=== PATIENT | female | born 1935 | race Caucasian/White ===

== ENCOUNTER 2020-02-14 12:19 | Inpatient (IN) | payer MEDICARE, MEDICAID, SELFPAY ==
[2020-02-14] VITALS (10 sets, daily range): BP systolic 106–147; BP diastolic 74–90; PULSE 84–130; RESP 16–23; TEMP 36.5–36.9; O2SAT 92–100; BMI 24.4
--- NOTE | ~2020-02-14 | XR_ITS ---
EXAMINATION: XR chest 1V portable DATE: 02/16/2020 06:01 INDICATION: Pneumonia. Congestive heart failure. TECHNIQUE: A single frontal view of the chest was obtained. COMPARISON: Chest single view 02/14/2020, CT abdomen and pelvis 02/14/2020 FINDINGS: There are moderate-sized right and small left pleural effusions. There is a diffuse interst itial pattern, consistent with pulmonary edema. There are airspace opacities at the lung bases, likel y atelectasis. No pneumothorax. Cardiomegaly is noted. IMPRESSION: 1. Mild pulmonary edema. 2. Moderate-sized right and small left pleural effusions with worsening on the right. 3. Cardiomegaly. Reviewed, dictated and finalized at location A.
--- NOTE | ~2020-02-14 | CT_ITS ---
EXAMINATION: CT abdomen pelvis w con EXAM DATE: 02/14/2020 18:08 INDICATION: Generalized abdominal pain. TECHNIQUE: Spiral CT of the abdomen and pelvis was performed following intravenous injection of 100 m L Omnipaque 350. Axial, coronal and sagittal images were reviewed. Initially a scan was done but the first injection to hub popped off. The dose-length product (DLP) for this examination was 329.62 mGy -cm. The exposure was tailored according to patient size (auto mA exposure control), and iterative r econstruction (ASIR) was used as additional dose reduction technique. There is no prior study for co mparison. FINDINGS: The liver, spleen, adrenal glands and pancreas are unremarkable. Gallbladder is unremarkab le. No biliary obstruction. There is a diminutive but nonthrombosed left liver lobe lateral segmenta l portal vein, with atrophy of that segment. No nephrolithiasis. Kidneys enhance symmetrically. There is no hydronephrosis. Largest cyst is in the left kidney measuring 5.4 cm. The uterus is unremarkabl e. The bladder is unremarkable. There is no retroperitoneal or pelvic lymphadenopathy. There is mild scattered arteriosclerotic disease. The appendix is normal. The stomach and small bowel are unremarkable. There is expected amount of c olonic stool. There is moderate sigmoid predominant colonic diverticulosis. There is no adjacent inf lammatory change to suggest diverticulitis. No free intraperitoneal gas. Mild cardiomegaly. There is moderate right pleural effusion, trace left pleural effusion. There is adjacent compressive atelec tasis, subsegmental on the right. There are no osteoblastic or osteolytic lesions identified. IMPRESSION: 1. No acute intra-abdominal findings. 2. Left liver lobe lateral segmental atrophy. 3. Moderate scattered colonic diverticulosis. 4. Cardiomegaly, moderate right and small trace pleural effusions. Reviewed, dictated and finalized at location A.
--- NOTE | ~2020-02-14 | XR_ITS ---
EXAMINATION: XR chest 1V portable INDICATION: Shortness of breath TECHNIQUE: Portable AP chest at 1346 hours COMPARISON: None available FINDINGS: Cardiomegaly is noted. There are patchy airspace opacities in the mid and lower lung zones and the right perihilar region. There is a mild diffuse interstitial pattern. Small pleural effusions are present. No pneumothorax is identified. IMPRESSION: 1. Cardiomegaly with mild pulmonary edema. 2. Airspace opacities of the mid and lower lung zones a right perihilar region, consistent with atele ctasis versus pneumonia versus pulmonary edema. 3. Small pleural effusions. Reviewed, dictated and finalized at location A. IMPRESSION: 1. Cardiomegaly with mild pulmonary edema. 2. Airspace opacities of the mid and lower lung zones a right perihilar region, consistent with atelectasis versus pneumonia versus pulmonary edema. 3. Small pleural effusions.
--- NOTE | 2020-02-14 12:35 | ECG_ITS ---
Measurements Intervals [place] Rate: 114 P: VT: 0 QRS: -9 QRSD: 100 T: 32 QT: 324 QTc: 448 Interpretive Statements ATRIAL FIBRILLATION WITH RAPID VENTRICULAR RESPONSE DELAYED PRECORDIAL R/S TRANSITION LOW QRS VOLTAGE IN LIMB LEADS BORDERLINE T WAVE ABNORMALITY- INF/LAT LEADS BASELINE ARTIFACT- I, II, III, AVR, AVL, AVF ABNORMAL ECG Electronically Signed On 02-14-2020 14:17:22 CDT by Arsenio Bhakta D.O.
[2020-02-14 13:22] LABS: Basophils Percent Auto 0.5 % (0.2-1.2); Eosinophils Percent Auto 0.3 % (0-4.4); Hematocrit 38.4 % (37.0-47.0); Hemoglobin 12.1 g/dL (12.0-15.0); Immature Granulocyte Absolute 0.01 K/mm3 (0.00-0.031); Immature Granulocyte Percent A 0.2 % (0-0.5); Lymphocytes Absolute Auto 1.39 K/mm3 (0.9-3.2); Lymphocytes Percent Auto 22.9 % (18.3-44.2); Mean Corpuscular HGB Conc 31.5 g/dl (32-36); Mean Corpuscular Hemoglobin 28.1 pg (26-34); Mean Corpuscular Volume 89.3 fl (80-100); Mean Platelet Volume 8.9 fl (7.4-10.4); Monocytes Absolute Auto 0.4 K/mm3 (0.1-0.6); Monocytes Percent Auto 6.4 % (2.6-8.5); Neutrophils Absolute Auto 4.2 K/mm3 (1.3-6.7); Neutrophils Percent Auto 69.7 % (45.5-73.1); Platelet Count Result 275 k/mm3 (150-375); Red Cell Distribution Width 13.6 % (11.5-14.5); White Blood Count 6.1 K/mm3 (4.5-10.0)
[2020-02-14 13:36] LABS: Blood Urea Nitrogen 21 mg/dL (7-17); Calcium 9.6 mg/dL (8.4-10.2); Carbon Dioxide 27 mmol/L (22-30); Chloride 104 mmol/L (98-107); Estimated CRCL calculation 33 ml/min; Estimated Glomerular Filt Rate 60; Glucose 98 mg/dL (65-105); Potassium 4.2 mmol/L (3.4-5.0); Sodium 137 mmol/L (137-145)
--- NOTE | 2020-02-14 14:30 | ED.SOB ---
HPI - SOB/Dyspnea General Chief Complaint: Shortness of Breath/Dyspnea Stated Complaint: SOB Time Seen by Provider: 02/14/20 13:31 History of Present Illness HPI Narrative: Patient presents with her daughter for increasing shortness of breath. This started about 5 days ago primarily with exertion. She was breathing deeper and heavier. She said her normal temperature runs at 94 and she was 95 at home. Her appetite is fine bowels are moving. She has not had chills or sweats. She has some lower abdominal pain intermittently, for which she sees a GI specialist. She has no chest pain. She has not had A. fib in the past. The history comes from the daughter because she says her mother is hard of hearing and cannot hear without lipreading. I am wearing my and 95 mask, and she cannot see my mouth when I am talking. MD elicited complaint: shortness of breath Related Data Home Medications Medication Instructions Recorded Confirmed Unable to Obtain Home Medications 02/14/20 02/14/20 Allergies Allergy/AdvReac Type Severity Reaction Status Date / Time tetracycline Allergy Hives Verified 02/14/20 12:35 Review of Systems Review of Systems: Narrative: Review of systems per the daughter is shortness of breath on exertion and lower abdominal pain. All else negative. All systems reviewed & are unremarkable except as noted in HPI and below PMFSH Social History Social History (Updated 02/14/20 @ 14:33 by Evi Padilla MD) Smoking status: Never smoker Alcohol intake: never Substance use: never Exam Narrative: Exam Narrative: GENERAL: Well-appearing, well-nourished, and in no acute distress. HEAD: Normocephalic, atraumatic. EYES: PERRLA and EOMI. ENT: Nares clear, no rhinorrhea or epistaxis. Mucous membranes moist. NECK: Supple. CHEST: Clear to auscultation. No respiratory distress. HEART: No murmur heard. Normal peripheral pulses. Heart sounds are distant. ABDOMEN: Soft, nontender, nondistended, normal active bowel sounds. EXTREMITIES: Normal range of motion. No edema. SKIN: Warm, dry, no rash. NEURO: No focal deficits. Alert and oriented x3. PSYCH: Normal mood and affect. Course Reevaluation(s) Reevaluation #1: Went in to give the patient and her daughter and updated on the admission process. The daughter says now her mother's stomach hurts. Patient points across her waistline right to left. She had 3 loose stools at home today, but does not feel like she needs to use the bathroom again. We will order a CT of the abdomen and pelvis, before she goes upstairs for admission. Date: 02/14/20 Time: 17:33 Reevaluation #2: Went in to update the daughter and the patient about the CAT scan results. She had enlarged heart, some fluid, but nothing serious. She has since had another bowel movement. The daughter statement for the update and the ready for admission. Date: 02/14/20 Time: 18:46 Vital Signs Vital signs: Vital Signs Temperature 98.4 F 02/14/20 12:23 Pulse Rate 119 H 02/14/20 12:23 Respiratory Rate 02/14/20 12:23 Blood Pressure 147/90 H 02/14/20 12:23 Pulse Oximetry 97 02/14/20 12:23 Temperature 98.4 F 02/14/20 12:23 Pulse Rate 84 02/14/20 19:06 Respiratory Rate 02/14/20 19:06 Blood Pressure 112/78 02/14/20 19:06 Pulse Oximetry 99 02/14/20 19:06 MDM - SOB/Dyspnea Differential Diagnosis Differential diagnosis: Likely congestive heart failure and community acquired pneumonia Medical Records Attestation: I reviewed the patient's medical records. Lab Data Attestation: I reviewed the patient's lab results. Result diagrams: 02/14/20 13:15 02/14/20 13:15 Labs: Lab Results 02/14/20 02/14/20 02/14/20 Range/Units 13:15 13:15 15:30 WBC 6.1 (4.5-10.0) K/mm3 RBC 4.30 (4.2-5.4) M/mm3 Hgb 12.1 (12.0-15.0) g/dL Hct 38.4 (37.0-47.0) % MCV 89.3 (80-100) fl MCH 28.1 (26-34) pg MCHC 31.5 L (32-36) g/dl RDW
[2020-02-14 16:20] LABS: Lactic Acid 0.8 mmol/L (0.7-2.1)
[2020-02-14 16:30] LABS: NT Pro B Type Natriuretic Pept 1730 PG/ML (5-100)
[2020-02-14 16:32] LABS: Troponin I < 0.012 ng/mL (0.000-0.034)
--- NOTE | 2020-02-14 21:25 | ADMGEN ---
This patient, Jeannie Alanis, was admitted to Intensive Care Unit-1. Patient/family oriented to hospital policies and general routines including ID bracelet, bed and alarms, visiting hours, pain management, procedures, bathroom and other care routines, personal items, smoking policy, room service/diet, and visiting hours. Valuables list has been completed. Information on how to activate the Rapid Response Team has been discussed. Patient/Family are encouraged to report perceived risks to care and to ask questions if they do not understand what they are told or what they should do.
--- NOTE | 2020-02-14 22:54 | PM.IMHP ---
H&P: HPI History of Present Illness Chief complaint: Pneumonia, Afib with RVR, Pleural Effusion Narrative: Jeannie Alanis is a 84 year old female the patient is very hard of hearing and reads lips. The patient has 1 more increasingly more short of breath the last 5 days. She stated that she has not had atrial fibrillation in the past she has been staying with her daughter. She is typically quarantine inside of the home. She has been having chills but has not had a fever. She has been having some diarrhea and some lower abdominal pain intermittent knee. She denies any blood in her stool. The patient had a chest x-ray that was read as cardiomegaly with mild pulmonary edema. Airspace opacities in the mid and lower lung zones right hilar area consistent with atelectasis versus pneumonia small pleural effusions. Patient was checked for covid [address] of the abdomen was read as no acute intra-abdominal findings. Left liver lobe lateral segmental atrophy. Moderate scattered colonic diverticulosis. Cardiomegaly moderate right and small trace pleural effusions. Date of service 02/14/2020. The patient was given a Zithromax and Rocephin. She was also started on a Cardizem drip and her heart rate is in the upper 90s to low 100s. Review of Systems Review of Systems: All systems reviewed & are unremarkable except as noted in HPI and below Constitutional: Constitutional: Reports as per HPI and Reports no additional constitutional complaints Eyes: Eyes: Reports as per HPI and Reports no additional eye complaints ENT: Reports system reviewed and no additional complaints, except as documented and Reports Normal hearing present Cardiovascular: Cardiovascular: Reports no additional cardiovascular complaints Respiratory: Respiratory: Reports no additional respiratory complaints and Reports no additional respiratory complaints Gastrointestinal: Gastrointestinal: Reports as per HPI and Reports no additional gastrointestinal complaints Musculoskeletal: Musculoskeletal: Reports no additional musculoskeletal complaints Integumentary/Breasts: Skin/Breast: Reports system reviewed and no additional complaints, except as docu and Reports as per HPI Neurologic: Reports system reviewed and no additional complaints, except as documented, Reports as per HPI and Reports Normal hearing present Psychiatric: Psychiatric: Reports no additional psychiatric complaints and Reports as per HPI Endocrine: Endocrine: Reports no additional endocrine complaints Hematologic/Lymphatic: Hematologic/Lymphatic: Reports no additional hematologic/lymphatic complaints Allergic/Immunologic: Allergic/Immunologic: Reports no additional allergic/immunologic complaints PMFSH Past Medical History Medical History (Updated 02/14/20 @ 23:23 by Krysta Alexandra NP) CHF (congestive heart failure) Depression History of stroke Subarachnoid back in the 1970 Hyperlipidemia Hypertension Hyperthyroidism With goiter Surgical History Surgical History (Updated 02/14/20 @ 23:16 by Krysta Alexandra NP) History of removal of pigmented skin lesion Hx of cholecystectomy Family History Family History Father Acute myocardial infarction Other Hemorrhagic stroke AUNT Mother Cerebrovascular accident Social History Social History (Updated 02/14/20 @ 14:33 by Evi Padilla MD) Smoking status: Never smoker Alcohol intake: never Substance use: never Gender identity (if verbalized by the patient): Female Spiritual care concerns: No Meds Home Medications and Allergies Home Medications Medication Instructions Recorded Confirmed Type amlodipine 7.5 mg PO DAILY 02/14/20 02/14/20 History calcium carbonate-vitamin D3 1 tablet PO HS 02/14/20 02/14/20 History fluoxetine 10 mg PO DAILY 02/14/20 02/14/20 History omega 5-hfu-epc-fish oil [Fish Oil] 1 cap PO DAILY 02/14/20 02/14/20 History p
[2020-02-15] VITALS (14 sets, daily range): BP systolic 91–124; BP diastolic 66–76; PULSE 60–110; RESP 13–24; TEMP 36.1–37.1; O2SAT 90–99
[2020-02-15 03:54] LABS: Basophils Percent Auto 0.5 % (0.2-1.2); Eosinophils Absolute Auto 0.1 K/mm3 (0-0.3); Hematocrit 31.1 % (37.0-47.0); Immature Granulocyte Absolute 0.01 K/mm3 (0.00-0.031); Immature Granulocyte Percent A 0.2 % (0-0.5); Lymphocytes Absolute Auto 1.63 K/mm3 (0.9-3.2); Lymphocytes Percent Auto 27.4 % (18.3-44.2); Mean Corpuscular HGB Conc 32.2 g/dl (32-36); Mean Corpuscular Hemoglobin 28.4 pg (26-34); Mean Corpuscular Volume 88.4 fl (80-100); Mean Platelet Volume 9.7 fl (7.4-10.4); Monocytes Absolute Auto 0.5 K/mm3 (0.1-0.6); Monocytes Percent Auto 7.9 % (2.6-8.5); Neutrophils Absolute Auto 3.8 K/mm3 (1.3-6.7); Platelet Count Result 247 k/mm3 (150-375); Red Blood Count 3.52 M/mm3 (4.2-5.4); Red Cell Distribution Width 13.8 % (11.5-14.5)
[2020-02-15 04:16] LABS: Alanine Aminotransferase 23 U/L (4-35); Albumin Level 3.7 g/dL (3.5-5.1); Alkaline Phosphatase 89 U/L (38-126); Aspartate Amino Transferase 41 U/L (14-36); Bilirubin,Total 0.7 mg/dL (0.2-1.3); Blood Urea Nitrogen 20 mg/dL (7-17); CRP 1.3 mg/dL (<1.0); Calcium 8.6 mg/dL (8.4-10.2); Carbon Dioxide 25 mmol/L (22-30); Chloride 104 mmol/L (98-107); Estimated CRCL calculation 35 ml/min; Estimated Glomerular Filt Rate > 60; Glucose 89 mg/dL (65-105); Potassium 3.9 mmol/L (3.4-5.0); Sodium 136 mmol/L (137-145)
--- NOTE | 2020-02-15 08:47 | WPDCN ---
Assessment and Plan Assessment and plan (1) A-fib: Qualifiers: Atrial fibrillation type: unspecified Qualified Code(s): I48.91 - Unspecified atrial fibrillation Code(s): I48.91 - Unspecified atrial fibrillation Status: Acute Assessment and Plan: New onset AFib RVR. No history of heart disease but is elderly with hypertension, so has risk factors. TSH normal. Echo is pending. Heart rate controlled with IV Cardizem. Will switch to p.o. today. Long discussion with the patient's daughter about atrial fibrillation, management, evaluation, risk of stroke, use of anticoagulants. The patient appears a reasonable candidate for anticoagulation. Will start Eliquis 2.5 mg BID. (2) CHF (congestive heart failure): Qualifiers: Heart failure chronicity: unspecified Heart failure type: unspecified Qualified Code(s): I50.9 - Heart failure, unspecified Code(s): I50.9 - Heart failure, unspecified Status: Chronic Assessment and Plan: Acute diastolic? CHF, new onset. Probably secondary to AFib RVR and diastolic dysfunction, rule out valve disease etc Appears mild, not requiring supplemental oxygen, but does have small effusions. Will start Lasix 20 mg daily IV push. Daily electrolytes Chest x-ray tomorrow (3) Hypertension: Code(s): I10 - Essential (primary) hypertension Status: Chronic Assessment and Plan: Home quinapril and amlodipine on hold, BP good but occ low. Will change amlodipine to Cardizem. (4) Pneumonia: Qualifiers: Laterality: bilateral Lung location: unspecified part of lung Pneumonia type: due to unspecified organism Qualified Code(s): J18.9 - Pneumonia, unspecified organism Code(s): J18.9 - Pneumonia, unspecified organism Status: Acute Assessment and Plan: COVID screen pending. On antibiotics. HPI Data of Consult Date/Time: 02/15/20 08:47 Requesting Physician: Abel Medellin MD Primary Care Provider: [facility] PHYSICIAN Consult Narrative Narrative: Date of service: 02/15/2020 Jeannie Alanis is a 84 year old female whom we were asked to see at the request of Dr. Medellin for our advice and opinion regarding her new onset of atrial fibrillation in consultation. The marcos patient presented to the emergency room yesterday with shortness of breath for 5 days and loose stool. She was found to have AFib RVR of new onset. She has been started on IV Cardizem 5 mg/hr and currently are heart rate is running 70-90 beats per minute. Last night while asleep she did have some short pauses of 2.0-2.2 seconds and the nurse thought she might have some sleep apnea. She has not had any chest pain, fevers, but she has been having some chills and abdominal pain. She has no history of heart disease but does have hypertension and hypercholesterolemia. She carries a history of stroke in 1977. No CHF until this admission. No previous CASTILLO or CP. Some recently edema for the last week or so. The history was obtained from EMR and the patient's nurse, Olivia, and daughter Aliya Nieto. Pt was living in [place] before the COVID pandemic. No PMD in the area. Had a CVA in 1977. Some dementia and memory loss over the last 5 years. No prior h/o heart disease. Has had CREST syndrome, w/ RAynaud's and esophageal problems, which runs int he family. Had a fall in December, but daughter says she appears steady on her feet and does not use any assistive device for walking. Pt is able to do the dishes and walks around the house and takes care of her ADLS. Review of Systems Constitutional: Constitutional: Reports lethargy ENT: Denies Normal hearing present (Severely hard of hearing, reads lips) and Denies epistaxis Cardiovascular: Cardiovascular: Denies chest pain, Reports pedal edema, Reports leg edema,
[2020-02-15] MEDS: FLUOXETINE HCL 10 MG CAPSULE PO (09:04)
[2020-02-15] MEDS: PANTOPRAZOLE 40 MG TABLET PO (09:04)
[2020-02-15] MEDS: OMEGA 3 POLYUNSAT FATTY ACIDS 1 GM CAP PO (09:04)
--- NOTE | 2020-02-15 10:25 | WPDTEECHO ---
[facility] TransEsophageal Echocardiogram Date of procedure: 02/15/20 Procedure Type: Transesophageal echo Diagnosis: Multiple strokes, thought to be cardioembolic Indications: Multiple stool, felt to be cardioembolic Image Quality: Good Findings: Conscious sedation: Performed by Anesthesia, see their notes. Outcome: The patient tolerated the procedure well with no complications. Procedure: After informed consent the patient had Hurricaine spray the hypopharynx. The patient had sedation as described above. He has a very small oropharynx. The transesophageal echo probe was introduced in the esophagus without difficulty. Imaging was obtained in multiplane views. Agitated saline was injected to evaluate for intracardiac shunting. The patient tolerated the procedure well with no complications. Findings: The left atrium was moderately enlarged. There is no thrombus present in the left atrium or left atrial appendage. The atrial septum appeared intact. Mitral valve appeared normal, with no stenosis or prolapse. The left ventricle had had normal size with severe concentric hypertrophy with good contractility of all segments. The ejection fraction is estimated to be: 60%. The aortic root and valve were normal. The ascending aorta, aortic arch and descending thoracic aorta were normal. The right atrium, tricuspid valve, right ventricle, pulmonic valve and pulmonic artery were all normal. There is no pericardial effusion. When agitated saline was injected intravenously there was no evidence of intracardiac shunting during normal respiration and abdominal compression. The patient was too sedated to cough or perform Valsalva. Colorflow Doppler Findings: Trace mitral regurgitation noted. Conclusions: No thrombus seen No vegetation seen Normal aorta; no aortic atheroma seen No intracardiac shunts present Moderate left atrial enlargement Severe concentric left ventricular hypertrophy Normal left ventricular systolic function No valvular heart disease Recomendations: No cardiac or aortic source emboli noted. Etiology of strokes is still uncertain. Continue telemetry to rule out paroxysmal atrial fibrillation Because the patient appeared to fail aspirin and Plavix, I favor continuing and anticoagulant and anti-platelet agent such as Xarelto and Plavix.
[2020-02-15 14:46] LABS: SARS-CoV-2 RNA PCR Negative
--- NOTE | 2020-02-15 19:11 | PM.IMPN ---
Progress Note: A&P Assessment and Plan (1) A-fib: Qualifiers: Atrial fibrillation type: unspecified Qualified Code(s): I48.91 - Unspecified atrial fibrillation Code(s): I48.91 - Unspecified atrial fibrillation Status: Acute Assessment and Plan: New onset. HR better controlled with Diltiazem. Being transitioned to oral route. Eliquis started. She probably has had AFib for at least 1-2 weeks to explain her symptoms. (2) CHF (congestive heart failure): Qualifiers: Heart failure chronicity: unspecified Heart failure type: unspecified Qualified Code(s): I50.9 - Heart failure, unspecified Code(s): I50.9 - Heart failure, unspecified Status: Chronic Assessment and Plan: Suspect CHF related to AFib. May have underlying CHF as well. Echo pending. Good UOP with Lasix. Continue IV Lasix. (3) Pneumonia: Qualifiers: Laterality: bilateral Lung location: unspecified part of lung Pneumonia type: due to unspecified organism Qualified Code(s): J18.9 - Pneumonia, unspecified organism Code(s): J18.9 - Pneumonia, unspecified organism Status: Acute Assessment and Plan: Patient being treated for possible PNA but no cough or fever. WBC normal. Zithromax and Rocephin started. BCx pending. Wean off of antibiotics when feasible. (4) Hypertension: Code(s): I10 - Essential (primary) hypertension Status: Chronic Assessment and Plan: BP reviewed on 02/15/20. BP well controlled. She has been transitioned to oral Diltiazem. Quinapril and Norvasc on hold. (5) Depression: Code(s): F32.9 - Major depressive disorder, single episode, unspecified Status: Chronic Assessment and Plan: Mood stable. Continue with fluoxetine. (6) Hyperlipidemia: Code(s): E78.5 - Hyperlipidemia, unspecified Status: Chronic Assessment and Plan: AST slightly elevated o/w LFTs okay. Continue with fish oil and Crestor. (7) Hyperthyroidism: Code(s): E05.90 - Thyrotoxicosis, unspecified without thyrotoxic crisis or storm Status: Chronic Assessment and Plan: TSH normal. Continue with her propylthiouracil. (8) Suspected COVID-19 virus infection: Code(s): Z20.828 - Contact with and (suspected) exposure to other viral communicable diseases Status: Acute Assessment and Plan: SARS-CoV-2 Negative. Additional Plan Abd pain - possibly related to her dyspnea and not GI. CT A/P result reviewed. Suspect dyspnea related to the pleural effusions/CHF. Her Hgb did drop to 10 but will monitor for now. Contineu Protonix. Subjective Date/time seen: 02/15/20 19:11 Interval history: 84yo female here for SOB found to have new onset AFib. Patient complains of upper abdominal pain when she sits up but believes this is more likely related to her increasing shortness of breath when she is active. She denies any chest pain. She has nausea but no vomiting. She states her nausea improved after bowel movement. She has had 4 soft bowel movements today. She does complain of dry mouth. No cough. She does have Sjogren's syndrome. She has been more short of breath with exertion over the past week or 2. Exam Narrative: Exam Narrative: Gen - NARD but does become dyspneic when she sits up in bed Chest - distant BS in the right base with inspiratory crackles left base, nml RR at rest CV -irregularly-irregular. S1-S2. Telemetry showing atrial fibrillation with reasonably well controlled heart rate. Abd -soft. Mildly protuberant. Nontender. Positive bowel sounds. No masses. Ext - No pedal edema. Negative Homans sign Neuro - Alert and oriented. Nonfocal exam. Hard of hearing Psych - Nml mood and affect Skin - Warm and dry Objective Data Vital Signs Vital Signs: Vital Signs - 24 hr 02/14/20 20:17 02/14/20 21:30 02/14/20 22:39 Temperature 97.7 F Pu
[2020-02-15] MEDS: APIXABAN 2.5 MG TABLET PO (19:39)
[2020-02-15] MEDS: ROSUVASTATIN 5 MG TABLET 15 MG PO (19:40)
[2020-02-15 19:52] LABS: Blood Urea Nitrogen 19 mg/dL (7-17); Calcium 9.1 mg/dL (8.4-10.2); Carbon Dioxide 26 mmol/L (22-30); Chloride 104 mmol/L (98-107); Estimated CRCL calculation 26 ml/min; Estimated Glomerular Filt Rate 47; Glucose 116 mg/dL (65-105); Potassium 4.2 mmol/L (3.4-5.0); Sodium 137 mmol/L (137-145)
[2020-02-15] MEDS: propylthiouraciL 50 MG TABLET PO (21:14)
[2020-02-16] VITALS (15 sets, daily range): BP systolic 114–145; BP diastolic 64–98; PULSE 71–123; RESP 12–93; TEMP 36.1–36.6; O2SAT 16–96
--- NOTE | 2020-02-16 | ECHO_ITS ---
Patient Info Name: Jeannie Alanis Age: 84 years : 1935 Gender: Female Ht: 62 in Wt: 133 lbs BSA: 1.64 m2 HR: 84 bpm BP: 115 / 66 mmHg Heart Rhythm: Atrial Fibrillation Technical Quality: Good Exam Date: 02/16/2020 8:37 AM Exam Location: [facility] Patient Status: Inpatient Admit Date: 02/14/2020 Staff Ordering Physician: Krysta Alexandra NP Speeder Operator: Frandy Morales, EVIE, RT Attending Provider: Kei Medellin MD Referring Physician: Ibrahima FOWLER; Exam Type: CA echo doppler color flow Study Info Indications I50.9 - Heart failure, unspecified Complete two-dimensional, color flow and Doppler transthoracic echocardiogram is performed. Summary 1. Left ventricular wall thickness, chamber size and systolic function are normal with no regional wall motion abnormalities with an estimated ejection fraction of 60-65%. However, the global longitudinal strain was-8% which is severely low, suggesting systolic dysfunction. Diastolic dysfunction is present. 2. Left atrial chamber dimension is severely enlarged. 3. Right ventricular chamber dimension is mildly enlarged with normal systolic function.. 4. Right atrial chamber dimension is severely enlarged. 5. There is mild aortic valve regurgitation. 6. There is moderately severe mitral valve regurgitation. PISA was 0.6 cm. 7. There is severe tricuspid valve regurgitation. 8. Mild pulmonary hypertension, estimated pulmonary arterial systolic pressure is 46 mmHg. 9. The aortic root size at the sinus of Valsalva is borderline dilated at 3.8 cm. . 10. Atrial fibrillation. Left Ventricle Left ventricular chamber dimension is normal. Left ventricular systolic function is normal, estimated at 60-65%. There is no increased left ventricular wall thickness. Left ventricular septal wall motion is normal. The left ventricular diastolic function is abnormal. Global longitudinal strain is severely elevated at -8 %. Left ventricular wall thickness, chamber size and systolic function are normal with no regional wall motion abnormalities with an estimated ejection fraction of 60-65%. However, the global longitudinal strain was-8% which is severely low, suggesting systolic dysfunction. Diastolic dysfunction is present. Right Ventricle Right ventricular chamber dimension is mildly enlarged with normal systolic function.. Right ventricular systolic function is normal. Left Atria Left atrial chamber dimension is severely enlarged. Right Atria Right atrial chamber dimension is severely enlarged. Aortic Valve The aortic valve is trileaflet. There is no aortic valve sclerosis. There is no aortic valve stenosis. There is mild aortic valve regurgitation. Pulmonic Valve The pulmonic valve is normal. There is no pulmonic valve stenosis. There is no pulmonic regurgitation. Mitral Valve The mitral valve has normal leaflets. There is no mitral valve stenosis. There is moderately severe mitral valve regurgitation. PISA was 0.6 cm. The mitral valve annulus is moderately calcified. Tricuspid Valve The tricuspid valve leaflets are normal. There is no significant tricuspid valve stenosis. There is severe tricuspid valve regurgitation. Mild pulmonary hypertension, estimated pulmonary arterial systolic pressure is 46 mmHg. Pericardium/Pleural The pericardium appears normal. There is no pericardial effusion. Inferior Vena Cava Normal inferior vena cava with >50% collapse upon inspiration consistent
[2020-02-16 04:57] LABS: Hematocrit 33.5 % (37.0-47.0); Hemoglobin 10.6 g/dL (12.0-15.0); Mean Corpuscular HGB Conc 31.6 g/dl (32-36); Mean Corpuscular Hemoglobin 27.9 pg (26-34); Mean Corpuscular Volume 88.2 fl (80-100); Mean Platelet Volume 9.1 fl (7.4-10.4); Platelet Count Result 250 k/mm3 (150-375); Red Cell Distribution Width 13.7 % (11.5-14.5)
[2020-02-16 05:21] LABS: Blood Urea Nitrogen 18 mg/dL (7-17); Calcium 8.9 mg/dL (8.4-10.2); Carbon Dioxide 26 mmol/L (22-30); Chloride 106 mmol/L (98-107); Estimated CRCL calculation 29 ml/min; Estimated Glomerular Filt Rate 53; Glucose 102 mg/dL (65-105); Potassium 4.1 mmol/L (3.4-5.0); Sodium 138 mmol/L (137-145)
--- NOTE | 2020-02-16 05:55 | PC.NURSE ---
This patient, Jeannie Alanis, was transferred to [ 212 from ICU 1] on 02/15/20 at 2030. Personal belongings sent with patient. Belongings list checked and signed with receiving [ ]. No report given because this RN remained responsible for patient's care. Appropriate documentation sent with patient.
[2020-02-16] MEDS: propylthiouraciL 50 MG TABLET PO ×2 (10:19→20:16)
[2020-02-16] MEDS: OMEGA 3 POLYUNSAT FATTY ACIDS 1 GM CAP PO (10:19)
[2020-02-16] MEDS: FUROSEMIDE INJ 40 MG/4 ML VIAL 20 MG IV PUSH ×2 (10:19→16:27)
[2020-02-16] MEDS: PANTOPRAZOLE 40 MG TABLET PO (10:19)
[2020-02-16] MEDS: FLUOXETINE HCL 10 MG CAPSULE PO (10:19)
[2020-02-16] MEDS: APIXABAN 2.5 MG TABLET PO ×2 (10:20→20:16)
--- NOTE | 2020-02-16 15:26 | PM.IMPN ---
Progress Note: A&P Assessment and Plan (1) A-fib: Qualifiers: Atrial fibrillation type: unspecified Qualified Code(s): I48.91 - Unspecified atrial fibrillation Code(s): I48.91 - Unspecified atrial fibrillation Status: Acute Assessment and Plan: New onset. HR reasonably well controlled with Diltiazem. Eliquis started but may not be able to afford this. Thus may need Coumadin. She probably has had AFib for at least 1-2 weeks to explain her symptoms. consider low dose metoprolol or advance dilitazem. Awaiting Echo results. (2) CHF (congestive heart failure): Qualifiers: Heart failure chronicity: unspecified Heart failure type: unspecified Qualified Code(s): I50.9 - Heart failure, unspecified Code(s): I50.9 - Heart failure, unspecified Status: Chronic Assessment and Plan: Suspect CHF related to AFib. May have underlying CHF as well. Echo pending. Good UOP with negative fluid balance with Lasix. CXR reviewed showing pulm edema and pleural effusions. Continue IV Lasix. Extra Lasix today. Consider thoracetesis. (3) Pneumonia: Qualifiers: Laterality: bilateral Lung location: unspecified part of lung Pneumonia type: due to unspecified organism Qualified Code(s): J18.9 - Pneumonia, unspecified organism Code(s): J18.9 - Pneumonia, unspecified organism Status: Acute Assessment and Plan: Patient being treated for possible PNA but no cough or fever. WBC remains normal. Zithromax and Rocephin started. BCx NGTD. CXR reviewed today and more consistent with CHF. Will stop abx. Feel PNA has been ruled out. (4) Hypertension: Code(s): I10 - Essential (primary) hypertension Status: Chronic Assessment and Plan: BP reviewed on 02/16/20. BP well controlled. She has been transitioned to oral Diltiazem. Quinapril and Norvasc remain on hold. (5) Depression: Code(s): F32.9 - Major depressive disorder, single episode, unspecified Status: Chronic Assessment and Plan: Mood stable. Continue with fluoxetine. (6) Hyperlipidemia: Code(s): E78.5 - Hyperlipidemia, unspecified Status: Chronic Assessment and Plan: AST slightly elevated o/w LFTs okay. Continue with fish oil and Crestor. (7) Hyperthyroidism: Code(s): E05.90 - Thyrotoxicosis, unspecified without thyrotoxic crisis or storm Status: Chronic Assessment and Plan: TSH normal. Continue with her propylthiouracil. (8) Suspected COVID-19 virus infection: Code(s): Z20.828 - Contact with and (suspected) exposure to other viral communicable diseases Status: Acute Assessment and Plan: SARS-CoV-2 Negative. Subjective Date/time seen: 02/16/20 15:26 Interval history: 84yo female here for SOB found to have new onset AFib. Eating okay. Slept well. No complaints. No SOB but +CASTILLO. Up to the bedside commode. No cough. Since my visit, RN walked patient to the nurses station with HR to 120 and pulse ox dropped 88% on room air. Exam Narrative: Exam Narrative: Gen - NARD lying semirecumbent in bed Chest - distant BS bibasilar R>L o/w clear. nml RR CV -irregularly-irregular. S1-S2. Telemetry showing atrial fibrillation with reasonably well controlled HR with occas <2 sec pause Abd -soft, less protubernat, +BS Ext - No pedal edema Neuro - pleasant and cooperative. Hard of hearing Psych - Nml mood and affect Skin - Warm and dry Objective Data Vital Signs Vital Signs: Vital Signs - 24 hr 02/15/20 16:00 02/15/20 18:00 02/15/20 20:00 Temperature 98.7 F 98.2 F Pulse Rate 104 H 97 98 Respiratory Rate 24 H 20 Blood Pressure 117/74 124/68 Pulse Oximetry 91 93 02/15/20 22:00 02/15/20 23:33 02/16/20 00:00 Temperature 97.9 F Pulse Rate 110 H 101 H 102 H Respiratory Rate 20 Blood Pressure 114/76 Pulse Oximetry 96 02/16/20 02:00 05
--- NOTE | 2020-02-16 15:45 | PM.PNCARD ---
Progress Note: A&P Assessment and Plan (1) A-fib: Qualifiers: Atrial fibrillation type: unspecified Qualified Code(s): I48.91 - Unspecified atrial fibrillation Code(s): I48.91 - Unspecified atrial fibrillation Status: Acute Assessment and Plan: New onset AFib RVR. No history of heart disease but is elderly with hypertension, so has risk factors. TSH normal. Echo is pending. Heart rate reasonably controlled with diltiazem 120 mg daily. Eliquis would cost $147 per month. Called daughter Heather to discuss alternative of warfarin. She said for now to continue with Eliquis. Between her and her son they would make sure she would get what she needs. Discussed that if Eliquis becomes too expensive could always change to warfarin down the line. Will provide discount card for one month free at discharge. (2) CHF (congestive heart failure): Qualifiers: Heart failure chronicity: unspecified Heart failure type: unspecified Qualified Code(s): I50.9 - Heart failure, unspecified Code(s): I50.9 - Heart failure, unspecified Status: Chronic Assessment and Plan: Acute diastolic? CHF, new onset. Probably secondary to AFib RVR and diastolic dysfunction, rule out valve disease etc Appears mild, not requiring supplemental oxygen, but does have small effusions. Oxygen saturation down to 88% with ambulation to nurses station. Dr Medellin giving additional furosemide this afternoon (3) Hypertension: Qualifiers: Hypertension type: essential hypertension Qualified Code(s): I10 - Essential (primary) hypertension Code(s): I10 - Essential (primary) hypertension Status: Chronic Assessment and Plan: Home quinapril and amlodipine on hold, BP good but occasionally low. Amlodipine changed to Cardizem. (4) Pneumonia: Qualifiers: Laterality: bilateral Lung location: unspecified part of lung Pneumonia type: due to unspecified organism Qualified Code(s): J18.9 - Pneumonia, unspecified organism Code(s): J18.9 - Pneumonia, unspecified organism Status: Acute Assessment and Plan: COVID screen negative Antibiotics stopped by Dr Medellin Additional Plan Plan discussed with Dr Gage Gonzales 02/16/2020 Time Spent With Patient Time with patient: less than 15 minutes Subjective Date/time seen: 02/16/20 15:45 Interval history: Folow up for: SOB found to have new onset AFib. and CHF Date of service: 02/16/2020 Subjective: Denied pain. Short of breath with exertional activities even getting up and down to the bedside commode. Denied lightheadedness or palpitations. slept well last night. Some abdominal discomfort. Review of Systems Constitutional: Constitutional: Denies body ache(s) and Denies chills Eyes: Eyes: Denies blurry vision ENT: Denies dizziness, Reports hearing loss, Denies epistaxis and Denies neck pain Cardiovascular: Cardiovascular: Denies chest pain, Reports pedal edema (Resolved), Reports leg edema (Resolved), Denies lightheadedness, Denies palpitations and Reports dyspnea on exertion Respiratory: Respiratory: Denies chest congestion and Reports dyspnea on exertion Gastrointestinal: Gastrointestinal: Reports abdominal pain, Denies melena, Denies hematochezia and Reports diarrhea Genitourinary: Genitourinary: Denies hematuria Musculoskeletal: Musculoskeletal: Denies arthralgias and Denies neck pain Integumentary/Breasts: Skin/Breast: Denies rash Neurologic: Reports confusion (Some memory loss.) and Denies dizziness Psychiatric: Psychiatric: Reports confusion (Some memory loss.) Endocrine: Endocrine: Denies palpitations Hematologic/Lymphatic: Hematologic/Lymphatic: Denies easy bleeding and Denies easy bruising Allergic/Immunologic: Allergic/Immunologic: Denies wheezing E
[2020-02-16] MEDS: ROSUVASTATIN 5 MG TABLET 15 MG PO (20:16)
[2020-02-17] VITALS (19 sets, daily range): BP systolic 113–132; BP diastolic 62–80; PULSE 75–97; RESP 14–18; TEMP 35.8–36.9; O2SAT 96–97
[2020-02-17 05:47] LABS: Blood Urea Nitrogen 19 mg/dL (7-17); Calcium 9.7 mg/dL (8.4-10.2); Carbon Dioxide 31 mmol/L (22-30); Chloride 101 mmol/L (98-107); Estimated CRCL calculation 29 ml/min; Estimated Glomerular Filt Rate 53; Glucose 106 mg/dL (65-105); Magnesium 2.2 mg/dL (1.6-2.3); Potassium 3.7 mmol/L (3.4-5.0); Sodium 138 mmol/L (137-145)
[2020-02-17] MEDS: FLUOXETINE HCL 10 MG CAPSULE PO (08:42)
[2020-02-17] MEDS: PANTOPRAZOLE 40 MG TABLET PO (08:42)
[2020-02-17] MEDS: propylthiouraciL 50 MG TABLET PO ×2 (08:42→20:00)
[2020-02-17] MEDS: OMEGA 3 POLYUNSAT FATTY ACIDS 1 GM CAP PO (08:43)
[2020-02-17] MEDS: FUROSEMIDE INJ 40 MG/4 ML VIAL 20 MG IV PUSH ×2 (08:43→18:48)
[2020-02-17] MEDS: APIXABAN 2.5 MG TABLET PO ×2 (08:43→20:00)
--- NOTE | 2020-02-17 12:32 | PM.PNCARD ---
Progress Note: A&P Assessment and Plan (1) A-fib: Qualifiers: Atrial fibrillation type: unspecified Qualified Code(s): I48.91 - Unspecified atrial fibrillation Code(s): I48.91 - Unspecified atrial fibrillation Status: Acute Assessment and Plan: New onset AFib RVR. Pursuing rate control anticoagulation at this point. Heart rate reasonably controlled with diltiazem 120 mg daily. Eliquis would cost $147 per month. Daughter Heather said for now to continue with Eliquis. Between her and her son they would make sure she would get what she needs. Discussed that if Eliquis becomes too expensive could always change to warfarin down the line. Will provide discount card for one month free at discharge. (2) CHF (congestive heart failure): Qualifiers: Heart failure chronicity: unspecified Heart failure type: unspecified Qualified Code(s): I50.9 - Heart failure, unspecified Code(s): I50.9 - Heart failure, unspecified Status: Chronic Assessment and Plan: Acute diastolic CHF, new onset. Secondary to AFib RVR, diastolic dysfunction, and valve disease. Back on oxygen, still with CASTILLO. Chest x-ray yesterday still showed CHF and effusions. Diuresing, continue b.i.d. Lasix. Add Kcl 10 mEq BID. Continue daily BMP. (3) Hypertension: Qualifiers: Hypertension type: essential hypertension Qualified Code(s): I10 - Essential (primary) hypertension Code(s): I10 - Essential (primary) hypertension Status: Chronic Assessment and Plan: Home quinapril and amlodipine on hold, BP good but occasionally low. Amlodipine changed to Cardizem. (4) Mitral regurgitation: Code(s): I34.0 - Nonrheumatic mitral (valve) insufficiency Status: Acute Assessment and Plan: Has moderately severe mitral and severe tricuspid regurgitation which is contributing to her heart failure. After CHF has been compensated and AFib is well controlled we can reassess valve disease as an outpatient. If it remains severe can consider further options. (5) Tricuspid regurgitation: Code(s): I07.1 - Rheumatic tricuspid insufficiency Status: Acute (6) Pneumonia: Qualifiers: Laterality: bilateral Lung location: unspecified part of lung Pneumonia type: due to unspecified organism Qualified Code(s): J18.9 - Pneumonia, unspecified organism Code(s): J18.9 - Pneumonia, unspecified organism Status: Acute Assessment and Plan: COVID screen negative Antibiotics stopped by Dr Medellin Subjective Date/time seen: 02/17/20 12:32 Interval history: Folow up for: SOB found to have new onset AFib. and CHF 02/16/2020 visit: Subjective: Denied pain. Short of breath with exertional activities even getting up and down to the bedside commode. Denied lightheadedness or palpitations. slept well last night. Some abdominal discomfort. Date of service: 02/17/2020 Still with CASTILLO, but comfortable at rest. No dizziness or chest pain. Edema is has been better. Telemetry shows AFib rate running 90-110 beats per minute. Echo results: EF 60-65%. However, the global longitudinal strain was-8% which is severely low, suggesting systolic dysfunction. Diastolic dysfunction is present. Biatiral enlargement. Mild RV enlargement. moderately severe MR, severe TR, mild pulm HTN RVSP 46 mmHg. . Review of Systems Constitutional: Constitutional: Reports fatigue ENT: Denies Normal hearing present and Denies epistaxis Cardiovascular: Cardiovascular: Denies chest pain, Reports leg edema (Much improved), Denies lightheadedness and Denies palpitations Respiratory: Respiratory: Denies chest congestion, Denies cough, Denies dyspnea and Reports dyspnea on exertion Gastrointestinal: Gastrointesti
--- NOTE | 2020-02-17 13:31 | PM.IMPN ---
Progress Note: A&P Assessment and Plan (1) A-fib: Qualifiers: Atrial fibrillation type: unspecified Qualified Code(s): I48.91 - Unspecified atrial fibrillation Code(s): I48.91 - Unspecified atrial fibrillation Status: Acute Assessment and Plan: New onset. HR better controlled with Diltiazem. Eliquis started. She probably has had AFib for at least 1-2 weeks to explain her symptoms. Echo as mentioned below. Continue Eliquis for now; patient's family willing to pay for this. (2) CHF (congestive heart failure): Qualifiers: Heart failure chronicity: unspecified Heart failure type: unspecified Qualified Code(s): I50.9 - Heart failure, unspecified Code(s): I50.9 - Heart failure, unspecified Status: Chronic Assessment and Plan: CHF related to AFib, diastolic dysfunction (and possibly systolic) and severe MR. Echo showing EF 60-65% but possible systolic dysfunction, diastolic dysfunction, mod-severe MR adn pulmonary HTN with severe TR. Good UOP with negative fluid balance with Lasix. CXR 02/15 showing pulm edema and pleural effusions. Continue IV Lasix and frequency increased today. Continue diuresis. Watch for HoTN. Further workup as outpatient. (3) Hypertension: Qualifiers: Hypertension type: essential hypertension Qualified Code(s): I10 - Essential (primary) hypertension Code(s): I10 - Essential (primary) hypertension Status: Chronic Assessment and Plan: BP reviewed on 02/17/20. BP well controlled. She has been transitioned to oral Diltiazem. Quinapril and Norvasc remain on hold. Continue to monitor (4) Depression: Qualifiers: Active/Remission status: in full remission Depression Type: major depressive disorder Major depression recurrence: unspecified whether recurrent Qualified Code(s): F32.5 - Major depressive disorder, single episode, in full remission Code(s): F32.9 - Major depressive disorder, single episode, unspecified Status: Chronic Assessment and Plan: Mood stable. Continue with fluoxetine. (5) Hyperlipidemia: Qualifiers: Hyperlipidemia type: unspecified Qualified Code(s): E78.5 - Hyperlipidemia, unspecified Code(s): E78.5 - Hyperlipidemia, unspecified Status: Chronic Assessment and Plan: AST slightly elevated o/w LFTs okay. Continue with fish oil and Crestor. (6) Hyperthyroidism: Code(s): E05.90 - Thyrotoxicosis, unspecified without thyrotoxic crisis or storm Status: Chronic Assessment and Plan: TSH normal. Continue with her propylthiouracil. (7) Abdominal pain: Qualifiers: Abdominal location: generalized Qualified Code(s): R10.84 - Generalized abdominal pain Code(s): R10.9 - Unspecified abdominal pain Status: Acute Assessment and Plan: Abd pain possibly related to her dyspnea and not GI. CT A/P showing no acute findings. Her Hgb did drop to 10 but stable. She is having small, soft stools frequently. Posibly related to abx. Doubt impaction since CT scan showed only normal amount of stool. Continue Protonix. Follow for now. (8) Pneumonia: Qualifiers: Laterality: bilateral Lung location: unspecified part of lung Pneumonia type: due to unspecified organism Qualified Code(s): J18.9 - Pneumonia, unspecified organism Code(s): J18.9 - Pneumonia, unspecified organism Status: Acute Assessment and Plan: Patient being treated for possible PNA but no cough or fever. WBC remains normal. Zithromax and Rocephin started. BCx NGTD. CXR 02/16/20 consistent with CHF. Abx stopped. PNA has been ruled out. monitor clinically. (9) Suspected COVID-19 virus infection: Code(s): Z20.828 - Contact with and (suspected) exposure to other viral communicable diseases Status: Acute Assessment and Plan: SARS-CoV-2 Negative.
[2020-02-17] MEDS: POTASSIUM CHLORIDE 10 MEQ TABLET.ER PO (18:47)
[2020-02-17] MEDS: ROSUVASTATIN 5 MG TABLET 15 MG PO (20:00)
[2020-02-18] VITALS (15 sets, daily range): BP systolic 103–130; BP diastolic 61–75; PULSE 72–113; RESP 16–20; TEMP 36.1–36.6; O2SAT 90–98
[2020-02-18 05:10] LABS: Hematocrit 33.4 % (37.0-47.0); Hemoglobin 10.9 g/dL (12.0-15.0); Mean Corpuscular HGB Conc 32.6 g/dl (32-36); Mean Corpuscular Hemoglobin 28.4 pg (26-34); Mean Platelet Volume 8.9 fl (7.4-10.4); Platelet Count Result 257 k/mm3 (150-375); Red Blood Count 3.84 M/mm3 (4.2-5.4); Red Cell Distribution Width 13.5 % (11.5-14.5); White Blood Count 6.1 K/mm3 (4.5-10.0)
[2020-02-18 05:27] LABS: Sodium 136 mmol/L (137-145)
[2020-02-18 05:43] LABS: Blood Urea Nitrogen 22 mg/dL (7-17); Calcium 9.2 mg/dL (8.4-10.2); Carbon Dioxide 29 mmol/L (22-30); Chloride 101 mmol/L (98-107); Estimated CRCL calculation 26 ml/min; Estimated Glomerular Filt Rate 47; Glucose 103 mg/dL (65-105)
[2020-02-18] MEDS: propylthiouraciL 50 MG TABLET PO (08:47)
[2020-02-18] MEDS: PANTOPRAZOLE 40 MG TABLET PO (08:47)
[2020-02-18] MEDS: OMEGA 3 POLYUNSAT FATTY ACIDS 1 GM CAP PO (08:47)
[2020-02-18] MEDS: APIXABAN 2.5 MG TABLET PO (08:47)
[2020-02-18] MEDS: POTASSIUM CHLORIDE 10 MEQ TABLET.ER PO (08:47)
[2020-02-18] MEDS: FLUOXETINE HCL 10 MG CAPSULE PO (08:47)
[2020-02-18] MEDS: FUROSEMIDE INJ 40 MG/4 ML VIAL 20 MG IV PUSH (08:48)
--- NOTE | 2020-02-18 11:17 | PM.PNCARD ---
Progress Note: A&P Assessment and Plan (1) A-fib: Qualifiers: Atrial fibrillation type: unspecified Qualified Code(s): I48.91 - Unspecified atrial fibrillation Code(s): I48.91 - Unspecified atrial fibrillation Status: Acute Assessment and Plan: New onset AFib RVR. Pursuing rate control/anticoagulation at this point. Heart rate reasonably controlled with diltiazem 120 mg daily. Eliquis 2.5 mg q 12 hours (2) CHF (congestive heart failure): Qualifiers: Heart failure chronicity: unspecified Heart failure type: unspecified Qualified Code(s): I50.9 - Heart failure, unspecified Code(s): I50.9 - Heart failure, unspecified Status: Chronic Assessment and Plan: Acute diastolic CHF, new onset. Secondary to AFib RVR, diastolic dysfunction, and valve disease. CASTILLO improving. Has nasal cannula oxygen on at 2 L with saturations between 95 and 98%. Home O2 eval Diuresing with IV furosemide b.i.d.. Transition to p.o. furosemide 20 mg daily. Potassium 10 mEq daily with BMP next week (3) Hypertension: Qualifiers: Hypertension type: essential hypertension Qualified Code(s): I10 - Essential (primary) hypertension Code(s): I10 - Essential (primary) hypertension Status: Chronic Assessment and Plan: Home quinapril and amlodipine on hold, BP good but occasionally low. Amlodipine changed to Cardizem. Would not resume quinapril at discharge (4) Mitral regurgitation: Code(s): I34.0 - Nonrheumatic mitral (valve) insufficiency Status: Acute Assessment and Plan: Has moderately severe mitral and severe tricuspid regurgitation which is contributing to her heart failure. After CHF has been compensated and AFib is well controlled we can reassess valve disease as an outpatient. If it remains severe can consider further options. (5) Tricuspid regurgitation: Code(s): I07.1 - Rheumatic tricuspid insufficiency Status: Acute Assessment and Plan: As above (6) Pneumonia: Qualifiers: Laterality: bilateral Lung location: unspecified part of lung Pneumonia type: due to unspecified organism Qualified Code(s): J18.9 - Pneumonia, unspecified organism Code(s): J18.9 - Pneumonia, unspecified organism Status: Acute Assessment and Plan: COVID screen negative Antibiotics stopped by Dr Medellin Additional Plan See discharge instructions for follow-up. Plan discussed with Dr Albarado 1200 02/18/2020 Subjective Date/time seen: 02/18/20 11:17 Interval history: Folow up for: SOB found to have new onset AFib. and CHF Date of service: 02/18/2020 Subjective: Denied pain. Short of breath with exertional activities improving. Denied lightheadedness or palpitations. Some abdominal discomfort after she gets back to bed. Review of Systems Constitutional: Constitutional: Denies body ache(s), Denies chills, Reports fatigue and Denies headache(s) Eyes: Eyes: Denies blurry vision ENT: Denies Normal hearing present, Denies dizziness, Denies headache(s), Reports hearing loss, Denies epistaxis and Denies neck pain Cardiovascular: Cardiovascular: Denies chest pain, Reports pedal edema (Resolved), Reports leg edema (Much improved), Denies lightheadedness, Denies palpitations, Denies dyspnea and Reports dyspnea on exertion (improved) Respiratory: Respiratory: Denies chest congestion, Denies cough, Reports dyspnea on exertion (Improved) and Denies wheezing Gastrointestinal: Gastrointestinal: Reports abdominal pain (Occasional discomfort), Denies melena, Denies hematochezia and Reports diarrhea Genitourinary: Genitourinary: Denies hematuria and Reports nocturia (Related to diuretics) Musculoskeletal: Musculoskeletal: Denies back pain
--- NOTE | 2020-02-18 16:10 | HOMEO2EVAL ---
Home Oxygen Evaluation RC: Home Oxygen (O2) Evaluation Start: 02/18/20 10:52 Freq: ONCE Status: Active Protocol: RPE Activity Type Activity Date Activity User E-Sign Co-Sign Detail Recorded Client Recorded Date Recorded By Document 02/18/20 14:40 TEREZA [email or web address] 02/18/20 16:09 TEREZA Document 02/18/20 14:45 TEREZA [email or web address] 02/18/20 16:09 TEREZA Document 02/18/20 14:55 TEREZA [email or web address] 02/18/20 16:09 TEREZA 02/18/20 02/18/20 02/18/20 14:40 14:45 14:55 Home O2 Evaluation Test Phase Resting Exercise Resting Oxygen Delivery Room Air Room Air Room Air Pulse Oximetry (90-100 %) 94 90 95 Pulse Rate (60-100 beats/min) 85 112 H 88 Ambulation Distance (feet) 150 Home Oxygen Evaluation Comments NO HOME O2 NEEDED AT THIS TIME. Treatment Charges O2 Evaluation
--- NOTE | 2020-02-18 16:10 | PCRCNOTE ---
HOME O2 EVAL DONE, NO HOME O2 NEEDED AT THIS TIME.
--- NOTE | 2020-02-18 16:37 | PM.DS ---
DS: Diagnosis Admitting Diagnosis Admitting Diagnosis: Unspecified atrial fibrillation Discharge Diagnosis (1) A-fib: Qualifiers: Atrial fibrillation type: unspecified Qualified Code(s): I48.91 - Unspecified atrial fibrillation Code(s): I48.91 - Unspecified atrial fibrillation Status: Acute Assessment and Plan: New onset. HR better controlled with Diltiazem. Eliquis started. She probably has had AFib for at least 1-2 weeks to explain her symptoms. Echo as mentioned below. Continue Eliquis for now; patient's family willing to pay for this. (2) CHF (congestive heart failure): Qualifiers: Heart failure chronicity: unspecified Heart failure type: unspecified Qualified Code(s): I50.9 - Heart failure, unspecified Code(s): I50.9 - Heart failure, unspecified Status: Chronic Assessment and Plan: CHF related to AFib, diastolic dysfunction (and possibly systolic) and valvular disease. Echo showing EF 60-65% but possible systolic dysfunction, diastolic dysfunction, mod-severe MR and pulmonary HTN with severe TR. CXR 02/15 showing pulm edema and pleural effusions. Good UOP with negative fluid balance with IV Lasix. Patient able to be weaned off oxygen. Renal function remains stable. She was transitioned to oral Lasix. She will need further evaluation as outpatient for her underlying valvular disease. (3) Hypertension: Qualifiers: Hypertension type: essential hypertension Qualified Code(s): I10 - Essential (primary) hypertension Code(s): I10 - Essential (primary) hypertension Status: Chronic Assessment and Plan: Blood pressure monitored closely. Blood pressure remained well controlled. She has been transitioned to oral Diltiazem. Quinapril and Norvasc were held with no plans to resume. (4) Depression: Qualifiers: Depression Type: major depressive disorder Major depression recurrence: unspecified whether recurrent Active/Remission status: in full remission Qualified Code(s): F32.5 - Major depressive disorder, single episode, in full remission Code(s): F32.9 - Major depressive disorder, single episode, unspecified Status: Chronic Assessment and Plan: Mood stable. Continue with fluoxetine. (5) Hyperlipidemia: Qualifiers: Hyperlipidemia type: unspecified Qualified Code(s): E78.5 - Hyperlipidemia, unspecified Code(s): E78.5 - Hyperlipidemia, unspecified Status: Chronic Assessment and Plan: AST slightly elevated o/w LFTs okay. Continue with fish oil and Crestor. (6) Hyperthyroidism: Code(s): E05.90 - Thyrotoxicosis, unspecified without thyrotoxic crisis or storm Status: Chronic Assessment and Plan: TSH normal. We continued with her propylthiouracil. (7) Abdominal pain: Qualifiers: Abdominal location: generalized Qualified Code(s): R10.84 - Generalized abdominal pain Code(s): R10.9 - Unspecified abdominal pain Status: Acute Assessment and Plan: Abd pain possibly related to her dyspnea and not GI. CT A/P showing no acute findings. Her Hgb did drop to 10 but stable. She was having multiple small formed soft stools felt related to antibiotics. Doubt impaction since CT scan showed only normal amount of stool. We continued her Protonix. (8) Pneumonia: Qualifiers: Laterality: bilateral Lung location: unspecified part of lung Pneumonia type: due to unspecified organism Qualified Code(s): J18.9 - Pneumonia, unspecified organism Code(s): J18.9 - Pneumonia, unspecified organism Status: Acute Assessment and Plan: Patient was treated for possible PNA but no cough or fever. WBC remains normal. Zithromax and Rocephin started. BCx NGTD. CXR 02/16/20 consistent with CHF. Abx stopped. Patient was monitored clinically and felt PNA has been ruled out. (9) Suspected
== END 2020-02-18 18:08 | disposition home or self-care (01) | DRG 308 ==
LOC: ANHED 19:52 → ANHICU 02-15 06:36 → ANHIMU 02-16 02:58 → ANHICU 02-22 08:48 → ANHIMU 02-22 08:48
PROVIDERS: Internal Medicine Cardiovascular Disease; Nurse Practitioner; Admitting Provider Hospitalist; Emergency Provider Emergency Medicine; Visit Provider Internal Medicine
DX: I48.91 Unspecified atrial fibrillation (principal); I50.31 Acute diastolic (congestive) heart failure; I11.0 Hypertensive heart disease with heart failure; M34.1 CR(E)ST syndrome; R68.83 Chills (without fever); Z20.828 Contact with and (suspected) exposure to other viral communicable diseases; F03.90 Unspecified dementia, unspecified severity, without behavioral disturbance, psychotic disturbance, mood disturbance, and anxiety; I08.1 Rheumatic disorders of both mitral and tricuspid valves; F32.5 Major depressive disorder, single episode, in full remission; R10.84 Generalized abdominal pain; E78.5 Hyperlipidemia, unspecified; H91.90 Unspecified hearing loss, unspecified ear; E05.90 Thyrotoxicosis, unspecified without thyrotoxic crisis or storm; Z79.899 Other long term (current) drug therapy; Z86.73 Personal history of transient ischemic attack (TIA), and cerebral infarction without residual deficits
CPT/HCPCS: 36415; 71045; 74177; 80048; 80053; 83605; 83735; 83880; 84443; 84484; 85025; 85027; 86140; 87040; 87635; 87804; 93005; 93306; 94618; 96365; 96366; 96367; 96368; 99285; A9270; J0456; J0696; J1940; Q9967; U0003

== ENCOUNTER 2020-02-23 10:35 | Outpatient (CLI) | payer MEDICARE, SELFPAY ==
[2020-02-23 11:13] LABS: Blood Urea Nitrogen 20 mg/dL (7-17); Calcium 9.5 mg/dL (8.4-10.2); Carbon Dioxide 29 mmol/L (22-30); Chloride 104 mmol/L (98-107); Estimated Glomerular Filt Rate 60; Glucose 101 mg/dL (65-105); Potassium 4.7 mmol/L (3.4-5.0); Sodium 140 mmol/L (137-145)
== END 2020-02-23 10:36 | disposition home or self-care (01) ==
PROVIDERS: Visit Provider Nurse Practitioner Adult Health
DX: I48.91 Unspecified atrial fibrillation (principal); I50.9 Heart failure, unspecified
CPT/HCPCS: 36415; 80048